=== PATIENT | female | born 1930 | race Caucasian/White ===

== ENCOUNTER 2017-03-09 20:33 | Emergency (ER) | payer MEDICARE, MEDICAID ==
[~2017-03-09] VITALS: Ht 149.9 cm; Wt 70.3 kg
[2017-03-09 21:14] LABS: BASO # 0.1 x10^3/uL (0.0-0.2); BASO % 1 % (0-3); EOS # 0.1 x10^3/uL (0.0-0.7); EOS % 2 % (0-3); HEMATOCRIT 37.3 % (36.0-47.0); HEMOGLOBIN 12.8 g/dL (12.0-15.5); LYMPH # 3.1 x10^3/uL (1.0-4.8); LYMPH % 40 % (24-48); MEAN CORPUSCULAR HEMOGLOBIN 31 pg (25-35); MEAN CORPUSCULAR HGB CONC 34 g/dL (31-37); MEAN CORPUSCULAR VOLUME 91 fL (79-100); MONO # 0.7 x10^3/uL (0.0-1.1); MONO % 9 % (0-9); NEUT # 3.7 x10^3uL (1.8-7.7); NEUT % 48 % (31-73); PLATELET COUNT 195 x10^3/uL (140-400); RED BLOOD COUNT 4.09 x10^6/uL (3.50-5.40); RED CELL DISTRIBUTION WIDTH 13.8 % (11.5-14.5); WHITE BLOOD COUNT 7.8 x10^3/uL (4.0-11.0)
--- NOTE | 2017-03-09 21:27 | PHYS DOC ---
General Chief Complaint: CHEST PAIN Stated Complaint: CHEST PAIN Time Seen by MD: 20:36 Source: patient Exam Limitations: no limitations Problems: History of Present Illness Initial Comments Pt is 86/F to ED c/o chest pain. Pt points to left lower lateral chest/L flank states she's had constant mild- mod left chest pain x 2 weeks. Moved here from [place] two wks ago, pt meds have been packed. No sob/n/v/diaphoresis/arm or neck sx. Sx worse positionally, no other complaints. Timing/Duration: constant (2 wks) Severity: moderate Modifying Factors: worse with movement, improves with rest Associated Symptoms: other Allergies: Coded Allergies: naproxen (Verified Allergy, Unknown, 03/09/17) Past Medical History Medical History: other (anxiety, GERD, HTN, CAD) Surgical History: angioplasty, appendectomy (rotator cuff, b/l hips) Social History Smoker: non-smoker Alcohol: none Drugs: none Review of Systems Constitutional: denies chills, denies fever Respiratory: denies cough, denies shortness of breath, denies wheezing Cardiovascular: see HPI, denies palpitations, denies syncope Gastrointestinal: denies abdominal pain, denies diarrhea, denies nausea, denies vomiting Genitourinary: denies dysuria, frequency, denies hematuria Musculoskeletal: see HPI, denies joint swelling, denies neck pain Psychiatric/Neurological: denies headache, denies numbness, denies paresthesia Physical Exam General Appearance: no apparent distress (poor hygiene) Eyes: bilateral eye normal inspection, bilateral eye PERRL, bilateral eye EOMI Ear, Nose, Throat: hearing grossly normal, normal ENT inspection, normal pharynx Neck: non-tender, supple Respiratory: normal breath sounds, no respiratory distress Cardiovascular: normal peripheral pulses, regular rate, rhythm Gastrointestinal: non tender, soft Back: no vertebral tenderness, CVA tenderness (L) Extremities: non-tender, normal inspection Neurologic/Psychiatric: shingle carrier II-XII nml as tested, no motor/sensory deficits, alert, normal mood/affect, oriented x 3 Skin: normal color, warm/dry Orders, Labs, Meds EKG: NSR 69 bpm, diffuse T flattening no STEMI Chest AP: no acute cardiopulmonary process, interpreted by me PATIENT: REO FOSTER ACCOUNT: [id number] : 1930 LOCATION: ER AGE: 86 SEX: F EXAM STATUS: PRE ER ORD. PHYSICIAN: ERICH GILLETTE DO REASON: L lateral CP, elev d-dimer PROCEDURE: CT ANGIOGRAPHY CHEST PROCEDURE CTA chest with contrast dated 03/09/2017. HISTORY Chest pain and shortness of breath. Elevated D-dimer. TECHNIQUE Contiguous axial imaging of the chest performed following the intravenous administration of 75 cc Omnipaque 300. Study performed as dedicated CTA with thin cut coronal MIPS 3D reconstructions. Exposure: One or more of the following individualized dose reduction techniques were utilized for this exam: 1. Automated exposure control. 2. Adjustment of the mA and/or kV according to patient size. 3. Use of iterative reconstruction technique. COMPARISON None. FINDINGS Contrast bolus is adequate. No evidence of central, lobar or segmental pulmonary embolus. Subsegmental branches not well evaluated based on technique. Heart size mildly enlarged. No pericardial effusion. Coronary artery calcifications. Borderline enlarged subcarinal and right hilar lymph nodes measure up to 10 millimeters short axis. No axillary adenopathy. Central airways are patent. There is diffuse bronchial wall thickening with mosaic attenuation throughout both lungs.. No consolidation or pleural effusion. No pneumothorax. There is linear scar or atelectasis at the right base. Limited images of the upper abdomen are unremarkable. Mild to moderate narrowing of the celiac artery origin with mild narrowing of the SMA origin. No acute bony abnormality. Multilevel spondylosis. IMPRESSION - No evidence of central, lobar or segmental pulmonary embolus. - Diffuse bronchial wall thickening with mosaic attenuation throughout both lungs. This could be related to bronchiolitis and/or other causes of small airways disease. Mild edema or inflammatory processes less likely. - Borderline enlarged mediastinal and right hilar lymph nodes, nonspecific. - Coronary artery calcifications. Electronically signed by: Jeremiah Awad (March 09, 2017 23:07:18) DICTATED AND SIGNED BY: JEREMIAH AWAD MD DATE: 03/09/17 [id number] CC: ERICH GILLETTE DO ~ d-dimer 0.99, K+ 3.2 (oral given), BNP 1497, UA +SE grossly +infection Departure Time of Disposition: 00:07 Disposition: 01 HOME, SELF-CARE Diagnosis: pyelonephritis left, hypokalemia Condition: STABLE Patient Instructions: Hypokalemia-Brief, Pyelonephritis, Adult, [id number] Additional Instructions: Rest, no strenuous activity. Aggressive hydration with gatorade, water. Eat one banana twice daily. Rx: cipro, kcl Take medications with food. Follow up with your PCP tomorrow for recheck of symptoms and potassium,and to reestablish your chronic medication regimen. Return to ED with new or changing symptoms. ERICH GILLETTE DO March 09, 2017 21:27
[2017-03-09 21:32] LABS: ALBUMIN 3.3 g/dL (3.4-5.0); ALBUMIN/GLOBULIN RATIO 0.9 (1.0-1.7); GFR 52.7; POTASSIUM 3.2 mmol/L (3.5-5.1); TOTAL BILIRUBIN 0.5 mg/dL (0.2-1.0); TOTAL PROTEIN 6.8 g/dL (6.4-8.2)
[2017-03-09 21:51] LABS: BILIRUBIN,URINE NEG (NEG); CLARITY,URINE CLOUDY; COLOR,URINE YELLOW; GLUCOSE,URINE NEG (NEG)
[2017-03-09 21:52] LABS: BACTERIA,URINE FEW /HPF (0-FEW); NITRITE,URINE NEG (NEG); SQUAMOUS EPITHELIAL CELL,UR MANY /LPF; UROBILINOGEN,URINE 2 mg/dL (0.2 mg/dL); WBC,URINE >40 /HPF (0-4)
[2017-03-09] MEDS ORDERED: IOHEXOL 300 MG/ML 75 ML VIAL. IV ONE (22:00)
[2017-03-09] MEDS ORDERED: POTASSIUM CHLORIDE 20 MEQ TABLET.ER. PO ONE (22:15)
[2017-03-09] MEDS ORDERED: IV NORMAL SALINE 50ML 50 ML ONE (22:46)
[2017-03-09] MEDS ORDERED: cefTRIAXone SODIUM 1 GM VIAL IV ONE (22:46)
--- NOTE | 2017-03-09 23:08 | RAD ---
PROCEDURE CTA chest with contrast dated 03/09/2017. HISTORY Chest pain and shortness of breath. Elevated D-dimer. TECHNIQUE Contiguous axial imaging of the chest performed following the intravenous administration of 75 cc Omnipaque 300. Study performed as dedicated CTA with thin cut coronal MIPS 3D reconstructions. Exposure: One or more of the following individualized dose reduction techniques were utilized for this exam: 1. Automated exposure control. 2. Adjustment of the mA and/or kV according to patient size. 3. Use of iterative reconstruction technique. COMPARISON None. FINDINGS Contrast bolus is adequate. No evidence of central, lobar or segmental pulmonary embolus. Subsegmental branches not well evaluated based on technique. Heart size mildly enlarged. No pericardial effusion. Coronary artery calcifications. Borderline enlarged subcarinal and right hilar lymph nodes measure up to 10 millimeters short axis. No axillary adenopathy. Central airways are patent. There is diffuse bronchial wall thickening with mosaic attenuation throughout both lungs.. No consolidation or pleural effusion. No pneumothorax. There is linear scar or atelectasis at the right base. Limited images of the upper abdomen are unremarkable. Mild to moderate narrowing of the celiac artery origin with mild narrowing of the SMA origin. No acute bony abnormality. Multilevel spondylosis. IMPRESSION - No evidence of central, lobar or segmental pulmonary embolus. - Diffuse bronchial wall thickening with mosaic attenuation throughout both lungs. This could be related to bronchiolitis and/or other causes of small airways disease. Mild edema or inflammatory processes less likely. - Borderline enlarged mediastinal and right hilar lymph nodes, nonspecific. - Coronary artery calcifications. Electronically signed by: Severiano Awad (March 09, 2017 23:07:18)
[2017-03-10] MEDS ORDERED: PHEN100T82 PO (00:12)
[2017-03-10] MEDS ORDERED: CIPR500T94 PO (00:12)
[2017-03-10] MEDS ORDERED: POTA10CA PO (00:12)
--- NOTE | 2017-03-10 00:28 | EKG ---
[address] [address] Test Date: 2017-03-09 Test Time: 20:54:31 Pat Name: ROE FOSTER Department: Room: Gender: F Thread Drawer: YONI : 1930 Requested By: ERICH GILLETTE Order Number: [id number] Reading MD: Ric Sánchez Measurements Intervals [place] Rate: 69 P: 0 ME: 148 QRS: 62 QRSD: 68 T: 41 QT: 388 QTc: 422 Interpretive Statements SINUS RHYTHM NON-SPECIFIC ST/T CHANGES Electronically Signed On 03-16-2017 13:22:28 CDT by Ric Sánchez
[2017-03-10 00:40] VITALS: BP 129/66
--- NOTE | 2017-03-10 08:13 | RAD ---
Portable chest, 03/09/2017: History: Mouth swelling, chest pain The heart is within normal limits in size. A coronary artery stent is projected over the superior aspect of the heart. There is calcific plaquing of the aorta. The pulmonary vascularity is normal. There is mild elevation of the right hemidiaphragm. No acute infiltrates are seen. There is no evidence of pleural fluid. Moderate degenerative changes are evident in the spine. IMPRESSION: 1. Aortic atherosclerosis. 2. Coronary artery disease. 3. Mild elevation of the right hemidiaphragm.
== END 2017-03-10 00:45 | disposition home or self-care (01) ==
LOC: ER 20:33
DX: N12 Tubulo-interstitial nephritis, not specified as acute or chronic (principal); E87.6 Hypokalemia; K21.9 Gastro-esophageal reflux disease without esophagitis; I10 Essential (primary) hypertension; I25.10 Atherosclerotic heart disease of native coronary artery without angina pectoris; Z98.61 Coronary angioplasty status; Z88.6 Allergy status to analgesic agent
CPT/HCPCS: 36415; 71010; 71275; 80053; 81001; 82550; 83690; 83735; 83880; 84484; 85027; 85379; 85610; 85730; 87086; 93005; 96365; 99285; J0696; Q9967

== ENCOUNTER 2017-07-10 12:37 | Emergency (ER) | payer MEDICAID, MEDICARE, OTHER ==
[~2017-07-10] VITALS: Ht 165.1 cm; Wt 108.9 kg
[~2017-07-10 12:37] MED LIST: CIPR500T94 PO; PHEN100T82 PO; POTA10CA PO
[2017-07-10 13:27] LABS: BASO # 0.1 x10^3/uL (0.0-0.2); BASO % 1 % (0-3); EOS # 0.1 x10^3/uL (0.0-0.7); EOS % 2 % (0-3); HEMATOCRIT 40.6 % (36.0-47.0); HEMOGLOBIN 13.9 g/dL (12.0-15.5); LYMPH # 2.6 x10^3/uL (1.0-4.8); LYMPH % 37 % (24-48); MEAN CORPUSCULAR HEMOGLOBIN 31 pg (25-35); MEAN CORPUSCULAR HGB CONC 34 g/dL (31-37); MEAN CORPUSCULAR VOLUME 91 fL (79-100); MONO # 0.6 x10^3/uL (0.0-1.1); MONO % 8 % (0-9); NEUT # 3.8 x10^3uL (1.8-7.7); NEUT % 53 % (31-73); PLATELET COUNT 223 x10^3/uL (140-400); RED BLOOD COUNT 4.45 x10^6/uL (3.50-5.40); RED CELL DISTRIBUTION WIDTH 13.6 % (11.5-14.5); WHITE BLOOD COUNT 7.1 x10^3/uL (4.0-11.0)
[2017-07-10 13:39] LABS: ALBUMIN 3.7 g/dL (3.4-5.0); CALCIUM 9.4 mg/dL (8.5-10.1); CREATININE 0.9 mg/dL (0.6-1.0); GFR 59.4; POTASSIUM 3.3 mmol/L (3.5-5.1); TOTAL BILIRUBIN 0.7 mg/dL (0.2-1.0); TOTAL PROTEIN 7.5 g/dL (6.4-8.2)
--- NOTE | 2017-07-10 13:50 | PHYS DOC ---
Past History Past Medical History: No Pertinent History Past Surgical History: Hip Replacement Alcohol Use: None Drug Use: None Adult General Chief Complaint Chief Complaint: GI PROBLEM HPI HPI Patient is a 87 year old F who presents with abdominal pain. Jane states that over the past week she has had intermittent dull abdominal pain mostly in the left lower quadrant. She states that her bowel movements have been infrequent. Her last bowel movement was 4 days ago. She describes it as small volume and appearing similar to coffee grounds. She feels this did improve her pain. She does have a history of occasional constipation. She does not take any medications currently. She moved from [place] this past January and has not established care. Her last colonoscopy was more than 10 years ago and she believes there was an abnormality. Review of Systems Review of Systems Constitutional: Denies fever or chills [] Eyes: Denies change in visual acuity, redness, or eye pain [] HENT: Denies nasal congestion or sore throat [] Respiratory: Denies cough or shortness of breath [] Cardiovascular: No additional information not addressed in HPI [] GI: Denies abdominal pain, nausea, vomiting, bloody stools or diarrhea [] : Denies dysuria or hematuria [] Musculoskeletal: Denies back pain or joint pain [] Integument: Denies rash or skin lesions [] Neurologic: Denies headache, focal weakness or sensory changes [] Endocrine: Denies polyuria or polydipsia [] Family History Family History Noncontributory Current Medications Current Medications Medications reviewed Allergies Allergies Allergies Coded Allergies Type Severity Reaction Last Updated Verified naproxen Allergy Unknown 03/09/17 Yes Physical Exam Physical Exam Constitutional: Well developed, well nourished, no acute distress, non-toxic appearance. [] HENT: Normocephalic, atraumatic, bilateral external ears normal, oropharynx moist, no oral exudates, nose normal. [] Eyes: PERRLA, EOMI, conjunctiva normal, no discharge. [] Neck: Normal range of motion, no tenderness, supple, no stridor. [] Cardiovascular:Heart rate regular rhythm, no murmur [] Lungs & Thorax: Bilateral breath sounds clear to auscultation [] Abdomen: Bowel sounds normal, soft, no masses, no pulsatile masses. [] Mild left lower quadrant tenderness to deep palpation Skin: Warm, dry, no erythema, no rash. [] Back: No tenderness, no CVA tenderness. [] Extremities: No tenderness, no cyanosis, no clubbing, ROM intact, no edema. [] Neurologic: Alert and oriented X 3, normal motor function, normal sensory function, no focal deficits noted. [] Psychologic: Affect normal, judgement normal, mood normal. [] Current Patient Data Vital Signs Vital Signs Date Time Temp Pulse Resp B/P (MAP) Pulse Ox O2 Delivery O2 Flow Rate FiO2 07/10/17 12:47 98.6 92 20 100 Room Air Lab Results Laboratory Tests Test 07/10/17 13:13 White Blood Count 7.1 x10^3/uL (4.0-11.0) Red Blood Count 4.45 x10^6/uL (3.50-5.40) Hemoglobin 13.9 g/dL (12.0-15.5) Hematocrit 40.6 % (36.0-47.0) Mean Corpuscular Volume 91 fL (79-100) Mean Corpuscular Hemoglobin 31 pg (25-35) Mean Corpuscular Hemoglobin Concent 34 g/dL (31-37) Red Cell Distribution Width 13.6 % (11.5-14.5) Platelet Count 223 x10^3/uL (140-400) Neutrophils (%) (Auto) 53 % (31-73) Lymphocytes (%) (Auto) 37 % (24-48) Monocytes (%) (Auto) 8 % (0-9) Eosinophils (%) (Auto) 2 % (0-3) Basophils (%) (Auto) 1 % (0-3) Neutrophils # (Auto) 3.8 x10^3uL (1.8-7.7) Lymphocytes # (Auto) 2.6 x10^3/uL (1.0-4.8) Monocytes # (Auto) 0.6 x10^3/uL (0.0-1.1) Eosinophils # (Auto) 0.1 x10^3/uL (0.0-0.7) Basophils # (Auto) 0.1 x10^3/uL (0.0-0.2) Sodium Level 141 mmol/L (136-145) Potassium Level 3.3 mmol/L (3.5-5.1) L Chloride Level 105 mmol/L (98-107) Carbon Dioxide Level 28 mmol/L (21-32) Anion Gap 8 (6-14) Blood Urea Nitrogen 10 mg/dL (7-20) Creatinine 0.9 mg/dL (0.6-1.0) Estimated GFR (Cockcroft-Gault) 59.4 BUN/Creatinine Ratio 11 (6-20) Glucose Level 94 mg/dL (70-99) Calcium Level 9.4 mg/dL (8.5-10.1) Total Bilirubin 0.7 mg/dL (0.2-1.0) Aspartate Amino Transferase (AST) 11 U/L (15-37) L Alanine Aminotransferase (ALT) 15 U/L (14-59) Alkaline Phosphatase 84 U/L (46-116) Total Protein 7.5 g/dL (6.4-8.2) Albumin 3.7 g/dL (3.4-5.0) Albumin/Globulin Ratio 1.0 (1.0-1.7) Radiology/Procedures Radiology/Procedures Imaging was declined Course & Med Decision Making Course & Med Decision Making Pertinent Labs and Imaging studies reviewed. (See chart for details) Jane did not have any complaints of pain during her stay in the emergency room. She states that her symptoms resolved just prior to arrival. She was discharged in stable condition. Dragon Disclaimer Dragon Disclaimer This chart was dictated in whole or in part using Voice Recognition software in a busy, high-work load, and often noisy Emergency Department environment. It may contain unintended and wholly unrecognized errors or omissions. Departure Departure: Impression: Primary Impression: Constipation Additional Impression: Lower GI bleed Disposition: 01 HOME, SELF-CARE Condition: STABLE Referrals: PCP,NO (PCP) Patient Instructions: Constipation, Adult, Gastrointestinal Bleeding Additional Instructions: Jane was seen in the emergency department for pain in her abdomen. No emergency medical condition was found on history or physical exam. She did have normal labs including normal blood counts. Her symptoms are most consistent with constipation associated with mild lower bleeding. She is advised to use MiraLAX for constipation and follow-up with her primary care doctor as soon as possible for further management including consideration of colonoscopy Problem Qualifiers Primary Impression: Constipation Constipation type: outlet dysfunction constipation Qualified Codes: K59.02 - Outlet dysfunction constipation LOUISE GUERRERO MD Jul 10, 2017 13:50
[2017-07-10 14:36] VITALS: BP 150/96
== END 2017-07-10 14:38 | disposition home or self-care (01) ==
LOC: ER 12:37
DX: K92.2 Gastrointestinal hemorrhage, unspecified (principal); K59.02 Outlet dysfunction constipation; Z88.6 Allergy status to analgesic agent
CPT/HCPCS: 36415; 80053; 85025; 99284

== ENCOUNTER 2017-12-19 20:25 | Emergency (ER) | payer MEDICARE ==
[~2017-12-19] VITALS: Ht 165.1 cm; Wt 108.9 kg
--- NOTE | 2017-12-19 20:33 | ED.ADGEN ---
Past History Past Medical History: No Pertinent History Past Surgical History: Hip Replacement Alcohol Use: None Drug Use: None Adult General Chief Complaint Chief Complaint ".. I fell..".. " I was out walking with my daughter.. and I tripped on a side walk seam... and fell on this Lt. side....I did hit my head hard.. and zeke twisted my neck... but I am really... still real sore in this Lt. flank..." HPI HPI Patient is a 87 year old female who presents with above hx and complaints of fall on her left side prior to arrival. Pt. complaints of severe Lt abd., chest , head and neck pain. Pt. localizes pain in Lt spleen and chest wall area on palpation. Pt. denies loss of consciousness. Patient denies any limb tenderness or other injuries at this time. Review of Systems Review of Systems Constitutional: Denies fever or chills [] Eyes: Denies change in visual acuity, redness, or eye pain [] HENT: Denies nasal congestion or sore throat []complaints of Neck pain Respiratory: Denies cough or shortness of breath [] Cardiovascular: No additional information not addressed in HPI []complaints of chest pain GI: Complaints of abdominal pain Lt.upper quadrant. Denies nausea, vomiting, bloody stools or diarrhea [] : Denies dysuria or hematuria [] Musculoskeletal: Denies back pain or joint pain [] Integument: Denies rash or skin lesions [] Neurologic: Complaints of headache, . Denies focal weakness or sensory changes [] Endocrine: Denies polyuria or polydipsia [] All other systems were reviewed and found to be within normal limits, except as documented in this note. Family History Family History Non-Contributory Current Medications Current Medications Current Medications Medications (Trade) Dose Ordered Sig/Jovon Start Time Stop Time Status Last Admin Dose Admin Ceftriaxone Sodium 1 gm/ Sodium Chloride 50 ml @ 100 mls/hr 1X ONCE 12/19/17 23:00 12/19/17 23:29 UNV Ceftriaxone Sodium (Rocephin) 1 gm ONCE ONCE 12/19/17 23:00 12/19/17 23:01 DC 12/19/17 23:12 1 GM Iohexol (Omnipaque 300 Mg/ml) 75 ml 1X ONCE 12/19/17 22:30 12/19/17 22:31 DC 12/19/17 22:12 75 ML Lactated Ringer's 1,000 ml @ 1,000 mls/hr Q1H 12/19/17 20:37 12/19/17 21:36 DC 12/19/17 21:05 1,000 MLS/HR Magnesium Hydroxide (Milk Of Magnesia) 2,400 mg 1X ONCE 12/19/17 22:00 12/19/17 22:06 DC 12/19/17 23:12 2,400 MG Morphine Sulfate (Morphine 10mg Syringe) 5 mg 1X ONCE 12/19/17 21:00 12/19/17 21:01 DC 12/19/17 21:05 5 MG Potassium Chloride (KCl Oral Soln) 40 meq 1X ONCE 12/19/17 22:15 12/19/17 22:16 DC 12/19/17 23:12 40 MEQ See nursing for home meds Allergies Allergies Allergies Coded Allergies Type Severity Reaction Last Updated Verified naproxen Allergy Unknown 12/19/17 Yes Physical Exam Physical Exam Constitutional: in acute distress, non-toxic appearance. [] HENT: Normocephalic, atraumatic, bilateral external ears normal, oropharynx moist, no oral exudates, nose normal. Edentulous Eyes: PERRLA, EOMI, conjunctiva normal, no discharge. [] Neck: decreased range of motion due to pain, no stridor. [] Cardiovascular:Heart rate regular rhythm, no murmur []PMI to Lt. Lungs & Thorax: Bilateral breath sounds equal at apex with scattered wheezes on auscultation [] Lower chest wall and flank tenderness. Abdomen: Bowel sounds normal, soft,Lt. spleen area has marked tenderness and Lt flank pain, , no masses, no pulsatile masses. [] Old scar. Obese. Skin: Warm, dry, no erythema, no rash. [] Back: No tenderness, no CVA tenderness. [] Extremities: No tenderness, no cyanosis, no clubbing, ROM intact, ankle edema. [ ] Neurologic: Alert and oriented X 3, no marked motor function deficits but guarded movements because of left flank pain, no gross sensory function deficits , no focal deficits noted. DTRs +2 at patella and brachial. Psychologic: Affect anxious, judgement normal, mood normal. [] Current Patient Data Vital Signs Vital Signs Date Time Temp Pulse Resp B/P (MAP) Pulse Ox O2 Delivery O2 Flow Rate FiO2 12/19/17 20:25 98.2 84 18 97 Room Air Lab Results Laboratory Tests Test 12/19/17 20:41 12/19/17 21:00 White Blood Count 8.6 x10^3/uL (4.0-11.0) Red Blood Count 4.22 x10^6/uL (3.50-5.40) Hemoglobin 12.9 g/dL (12.0-15.5) Hematocrit 37.3 % (36.0-47.0) Mean Corpuscular Volume 89 fL (79-100) Mean Corpuscular Hemoglobin 31 pg (25-35) Mean Corpuscular Hemoglobin Concent 35 g/dL (31-37) Red Cell Distribution Width 13.9 % (11.5-14.5) Platelet Count 227 x10^3/uL (140-400) Neutrophils (%) (Auto) 61 % (31-73) Lymphocytes (%) (Auto) 32 % (24-48) Monocytes (%) (Auto) 7 % (0-9) Eosinophils (%) (Auto) 1 % (0-3) Basophils (%) (Auto) 1 % (0-3) Neutrophils # (Auto) 5.2 x10^3uL (1.8-7.7) Lymphocytes # (Auto) 2.7 x10^3/uL (1.0-4.8) Monocytes # (Auto) 0.6 x10^3/uL (0.0-1.1) Eosinophils # (Auto) 0.1 x10^3/uL (0.0-0.7) Basophils # (Auto) 0.1 x10^3/uL (0.0-0.2) Prothrombin Time 11.4 SEC (9.4-11.4) Prothrombin Time INR 1.1 (0.9-1.1) PTT 23 SEC (23-33) Sodium Level 140 mmol/L (136-145) Potassium Level 3.1 mmol/L (3.5-5.1) L Chloride Level 103 mmol/L (98-107) Carbon Dioxide Level 28 mmol/L (21-32) Anion Gap 9 (6-14) Blood Urea Nitrogen 13 mg/dL (7-20) Creatinine 1.0 mg/dL (0.6-1.0) Estimated GFR (Cockcroft-Gault) 52.6 Glucose Level 131 mg/dL (70-99) H Calcium Level 8.9 mg/dL (8.5-10.1) Magnesium Level 1.8 mg/dL (1.8-2.4) Total Bilirubin 0.5 mg/dL (0.2-1.0) Direct Bilirubin 0.1 mg/dL (0.0-0.2) Aspartate Amino Transferase (AST) 15 U/L (15-37) Alanine Aminotransferase (ALT) 15 U/L (14-59) Alkaline Phosphatase 85 U/L (46-116) Creatine Kinase 84 U/L (26-192) Creatine Kinase MB (Mass) 1.3 ng/mL (0.0-3.6) Creatine Kinase MB Relative Index 1.5 % (0-4) Troponin I Quantitative < 0.017 ng/mL (0-0.055) CD-Suu-K-Type Natriuretic Peptide 725 pg/mL (0-449) H Total Protein 6.7 g/dL (6.4-8.2) Albumin 3.2 g/dL (3.4-5.0) L Lipase 134 U/L (73-393) Urine Collection Type Unknown Urine Color Yellow Urine Clarity Hazy Urine pH 6.5 Urine Specific [place] 1.010 Urine Protein Neg (NEG-TRACE) Urine Glucose (UA) Neg mg/dL (NEG) Urine Ketones (Stick) Neg mg/dL (NEG) Urine Blood Mod (NEG) Urine Nitrite Neg (NEG) Urine Bilirubin Neg (NEG) Urine Urobilinogen Dipstick 0.2 mg/dL (0.2 mg/dL) Urine Leukocyte Esterase Mod (NEG) Urine RBC 3-5 /HPF (0-2) Urine WBC 11-20 /HPF (0-4) Urine Squamous Epithelial Cells Occ /LPF Urine Bacteria Few /HPF (0-FEW) Urine Hyaline Casts Occ /HPF Urine Mucus Slight /LPF EKG EKG My interpretation of EKG shows a sinus rhythm at 83 bpm. There are occasional premature atrial contractions. An leftward axis. But no findings acute STEMI with contralateral changes.[] Radiology/Procedures Radiology/Procedures Rotation of chest x-ray shows some hilar follows. And deviated trachea some blunting of left closed phrenic angle. COPD PD changes. Some increased cephalization. Borderline cardiomegaly. No free air in the diaphragm. Arthritic changes. CT of chest and abdomen show no acute surgical processes.[] Course & Med Decision Making Course & Med Decision Making Pertinent Labs and Imaging studies reviewed. (See chart for details). Acyclovir, Tylenol and ibuprofen as needed for discomfort. Patient use ice packs. Patient follow-up primary care. Patient return of any concerns. [] Final Impression Final Impression 1. Fall 2. Contusion[]s 3. Cervical strain sprain 4. Concussion Problems: Dragon Disclaimer Dragon Disclaimer This electronic medical record was generated, in whole or in part, using a voice recognition dictation system. HAMZAH ALCALA MD Dec 19, 2017 20:33
[2017-12-19 20:59] LABS: BASO # 0.1 x10^3/uL (0.0-0.2); BASO % 1 % (0-3); EOS # 0.1 x10^3/uL (0.0-0.7); EOS % 1 % (0-3); HEMATOCRIT 37.3 % (36.0-47.0); HEMOGLOBIN 12.9 g/dL (12.0-15.5); LYMPH # 2.7 x10^3/uL (1.0-4.8); LYMPH % 32 % (24-48); MEAN CORPUSCULAR HEMOGLOBIN 31 pg (25-35); MEAN CORPUSCULAR HGB CONC 35 g/dL (31-37); MEAN CORPUSCULAR VOLUME 89 fL (79-100); MONO # 0.6 x10^3/uL (0.0-1.1); MONO % 7 % (0-9); NEUT # 5.2 x10^3uL (1.8-7.7); NEUT % 61 % (31-73); PLATELET COUNT 227 x10^3/uL (140-400); RED BLOOD COUNT 4.22 x10^6/uL (3.50-5.40); RED CELL DISTRIBUTION WIDTH 13.9 % (11.5-14.5); WHITE BLOOD COUNT 8.6 x10^3/uL (4.0-11.0)
[2017-12-19] MEDS: MORPHINE SULFATE 10 MG/ML SYRINGE. SQ ONE (21:05)
[2017-12-19] MEDS: IV RINGERS SOLUTION,LACTATED 1,000 ML IV SCH (21:05)
[2017-12-19 21:24] LABS: ALBUMIN 3.2 g/dL (3.4-5.0); CALCIUM 8.9 mg/dL (8.5-10.1); DIRECT BILIRUBIN 0.1 mg/dL (0.0-0.2); GFR 52.6; MAGNESIUM 1.8 mg/dL (1.8-2.4); POTASSIUM 3.1 mmol/L (3.5-5.1); TOTAL BILIRUBIN 0.5 mg/dL (0.2-1.0); TOTAL PROTEIN 6.7 g/dL (6.4-8.2)
[2017-12-19] MEDS: IOHEXOL 300 MG/ML 75 ML VIAL. IV ONE ×2 (21:30→22:12)
[2017-12-19 21:54] LABS: BILIRUBIN,URINE NEG (NEG); CLARITY,URINE HAZY; COLOR,URINE YELLOW; GLUCOSE,URINE NEG (NEG)
[2017-12-19 21:55] LABS: BACTERIA,URINE FEW /HPF (0-FEW); HYALINE CASTS, URINE OCC /HPF; NITRITE,URINE NEG (NEG); SQUAMOUS EPITHELIAL CELL,UR OCC /LPF; UROBILINOGEN,URINE 0.2 mg/dL (0.2 mg/dL)
--- NOTE | 2017-12-19 22:29 | RAD ---
Indication: Fall, dizziness TECHNIQUE: CT head without IV contrast COMPARISON: None FINDINGS: No pathologic extra-axial or intra-axial fluid collection. Moderate diffuse cerebral atrophy noted. No acute intracranial bleed. No focal loss of gonzalez-white differentiation. Confluent low-attenuation is seen in the periventricular and deep white matter. Visualized orbits are within normal limits. No calvarial fractures. Visualized paranasal sinuses and mastoid air cells are clear. Atherosclerotic disease of the bilateral cavernous carotid arteries noted. IMPRESSION: 1. No acute intracranial process on this noncontrast CT. 2. Advanced white matter changes likely secondary to chronic microvascular ischemic disease. CT cervical spine INDICATION: Fall TECHNIQUE: CT cervical spine without IV contrast with multiplanar reformats. COMPARISON: None FINDINGS: There is loss of normal cervical lordosis. This could be due to muscle spasm or positioning. No compression deformities. Atlantoaxial joint interval is preserved. No acute fractures. Degenerative changes are seen in the atlantoaxial joint. Facet joints are in normal anatomic alignment. There is mild anterolisthesis of C4 over C5. Significant intervertebral disc space narrowing noted at C5-C6 and C6-C7 with endplate sclerosis and osteophytosis. Multilevel mild to moderate facet arthropathy noted. Prevertebral soft tissue within normal limits. The noncontrast appearance of the nasopharynx, oropharynx and hypopharynx are within normal limits. No bulky cervical adenopathy. C2-C3: Mild left neuroforamina narrowing. Severe left facet arthropathy. C3-C4: Mild circumferential disc bulge. Severe bilateral facet arthropathy. Severe bilateral neuroforamina narrowing. C4-C5: Severe bilateral facet arthropathy. Severe bilateral neuroforamina narrowing. C5-6: Moderate bilateral facet arthropathy. Severe left and moderate right neuroforamina narrowing. Mild spinal canal stenosis measuring 8 mm in AP dimension. C6-C7: Moderate bilateral facet arthropathy. Severe bilateral neuroforamina narrowing. Mild spinal canal stenosis measuring 8 mm in AP dimension. IMPRESSION: 1. No acute fractures. 2. Multilevel degenerative disc disease with facet arthropathy causing varying amount of neuroforaminal narrowing and spinal canal stenosis as described above. Electronically signed by: Daquan Blanco DO (12/19/2017 10:27 PM) [facility]
--- NOTE | 2017-12-19 22:35 | RAD ---
PQRS Compliance Statement: One or more of the following individualized dose reduction techniques were utilized for this examination: 1. Automated exposure control 2. Adjustment of the mA and/or kV according to patient size 3. Use of iterative reconstruction technique CT angiography chest, abdomen and pelvis 12/19/2017 INDICATION: Fall, chest and abdominal pain with dizziness and shortness of breath. Bradycardia. COMPARISON: CT angiography chest March 09, 2017 TECHNIQUE: Multiple axial CT images of the chest, abdomen and pelvis were obtained after the intravenous administration of 100 cc Omnipaque 300. Coronal and sagittal reformats are provided. Maximum intensity projection images of the thoracic and abdominal vasculature are provided. FINDINGS: The thyroid gland is normal in appearance. There are no pathologically enlarged lymph nodes in the axilla. A right paratracheal lymph node measures 8 mm by short axis. A right precarinal lymph node measures 10 mm by short axis. A prevascular lymph node measures 7 mm by short axis. A subcarinal lymph node measures 13 mm by short axis. A right hilar lymph node measures 8 mm by short axis. A left hilar lymph node measures 8 mm by short axis. The thoracic aorta is normal in caliber measuring 3.5 cm at the level of the main pulmonary artery. There is adequate opacification of the pulmonary arterial system. No filling defects are identified to suggest acute or chronic pulmonary emboli. Heart size is within normal limits. Three-vessel coronary artery vascular calcifications are present. There is no pericardial effusion. There is diffuse groundglass changes throughout the lungs with minimal intralobular septal thickening which may represent mild pulmonary interstitial edema. There is a 3 mm solid noncalcified pulmonary nodule in the right lower lobe (series 4, image 45). There are no pleural effusions. No pulmonary vascular congestion or pneumothorax. There is a small hiatal hernia. Esophagus appears patulous. There are no acutely displaced rib fractures. Abdomen/pelvis: The liver, spleen, bilateral adrenal glands, pancreas and gallbladder are normal in appearance. The abdominal aorta measures 2.0 cm at the aortic hiatus. There is an infrarenal abdominal aortic aneurysm measuring 2.3 x 2.3 cm. There is moderate calcified and noncalcified atheromatous plaque. The common iliac vessels, external and internal iliac vessels are normal in course and caliber with mild atherosclerotic changes. Bilateral hip prosthesis noted, limiting evaluation of the pelvis. There are no pathologically enlarged lymph nodes in the abdomen or pelvis. There is no free fluid or free intraperitoneal air. The kidneys enhance symmetrically. Few renal cystic lesions are identified in the right kidney measuring up to 15 mm. The inferior pole right renal lesion measuring 9 mm is indeterminate and follow-up renal ultrasound may be of benefit for further characterization. Small large bowel are normal in caliber without evidence for bowel obstruction or inflammation. Mild colonic diverticulosis is present without adjacent inflammatory changes appendix is not definitively visualized. No adjacent plantar changes are identified in the right lower quadrant. There is asymmetric atrophy of the right sella as muscle. No compression deformity of the spine. IMPRESSION: 1. No evidence for acute pulmonary embolism. 2. There is suggestion of mild pulmonary interstitial edema. 3. Nonenlarged mediastinal and hilar lymph nodes are likely reactive. 4. Small hiatal hernia. 5. No acutely displaced rib fractures are identified. Spleen is normal in appearance. 6. No evidence for bowel obstruction or inflammation. 7. There is an inferior pole right renal lesion measuring 9 mm which is indeterminate. Follow-up renal ultrasound may be of benefit for further characterization. 8. Infrarenal abdominal aortic aneurysm measuring 2.3 x 2.3 cm. There is moderate atherosclerotic changes of the abdominal aorta. 9. Please see above for incidental findings. Electronically signed by: Cathy Harris MD (12/19/2017 10:32 PM) [id number]
[2017-12-19] MEDS ORDERED: CEPH-264 PO (22:59)
[2017-12-19] MEDS: cefTRIAXone IV Push 1 GM VIAL. IVP ONE (23:12)
[2017-12-19] MEDS: MAGNESIUM HYDROXIDE 2,400 MG/30 ML ORAL.SUSP. PO ONE (23:12)
[2017-12-19] MEDS: POTASSIUM CHLORIDE 20 MEQ/15 ML ORAL LIQUID. PO ONE (23:12)
[2017-12-19 23:13] VITALS: BP 173/98
--- NOTE | 2017-12-20 01:28 | EKG ---
[address] [address] Test Date: 2017-12-19 Test Time: 20:48:19 Pat Name: CANDICE FOSTER Department: Room: Gender: F [employer] Helper: : [id number] Requested By: HAMZAH ALCALA Order Number: [id number] Reading MD: Measurements Intervals [place] Rate: 83 P: 90 ME: 160 QRS: -2 QRSD: 68 T: 16 QT: 320 QTc: 381 Interpretive Statements SINUS RHYTHM ATRIAL PREMATURE COMPLEX(ES) LEFTWARD AXIS OTHERWISE NORMAL ECG RI6.01 No previous ECG available for comparison
--- NOTE | 2017-12-20 08:14 | RAD ---
AP chest, 12/19/2017: History: Fall, chest pain Comparison is made to a study from 03/09/2017. The heart is at the upper limits of normal in size. There is calcific plaquing of the thoracic aorta. No pulmonary infiltrate is seen. Blunting of the right lateral costophrenic angle suggests a tiny amount of pleural fluid. There is no evidence of pneumothorax. IMPRESSION: 1. Borderline cardiomegaly and aortic atherosclerosis. 2. Probable tiny right pleural effusion.
== END 2017-12-19 23:23 | disposition home or self-care (01) ==
LOC: ER 20:25
DX: S06.0X0A Concussion without loss of consciousness, initial encounter (principal); S16.1XXA Strain of muscle, fascia and tendon at neck level, initial encounter; S30.1XXA Contusion of abdominal wall, initial encounter; S20.212A Contusion of left front wall of thorax, initial encounter; Z88.6 Allergy status to analgesic agent; W18.09XA Striking against other object with subsequent fall, initial encounter; Y93.01 Activity, walking, marching and hiking; Y99.8 Other external cause status; Y92.480 Sidewalk as the place of occurrence of the external cause
CPT/HCPCS: 36415; 70450; 71045; 71275; 72125; 74174; 80048; 80076; 81001; 82553; 83690; 83735; 83880; 84484; 85025; 85610; 85730; 87086; 93005; 96361; 96372; 96374; 99285; J0696; J2270; J7120; Q9967

== ENCOUNTER → 2018-04-20 | Outpatient (CLI) | payer MEDICARE ==
[~2018-04-20] MED LIST changes: +CEPH-264 PO
[2018-04-20 14:05] LABS: CALCIUM 9.3 mg/dL (8.5-10.1); CREATININE 1.1 mg/dL (0.6-1.0); GFR 47.1; POTASSIUM 3.9 mmol/L (3.5-5.1)
== END | disposition home or self-care (01) ==
LOC: LAB 13:07
PROVIDERS: ATTEND Family Medicine
DX: R07.1 Chest pain on breathing (principal); I10 Essential (primary) hypertension; E87.6 Hypokalemia; K21.9 Gastro-esophageal reflux disease without esophagitis
CPT/HCPCS: 36415; 80048

== ENCOUNTER → 2018-04-20 | Outpatient (CLI) | payer MEDICARE ==
[~2018-04-20] MED LIST changes: +IOHEXOL 300 MG/ML 75 ML VIAL. IV ONE
--- NOTE | 2018-04-20 17:13 | RAD ---
CTA chest with contrast Indication: Shortness of breath. Chest pain. . Comparison: December 19, 2017 Technique: After intravenous contrast administration, CT imaging was performed of the chest. MIP reconstructions were obtained. Exposure: One or more of the following individualized dose reduction techniques were utilized for this examination: 1. Automated exposure control 2. Adjustment of the mA and/or kV according to patient size 3. Use of iterative reconstruction technique. FINDINGS: Pulmonary arteries:No evidence of pulmonary embolism. Thoracic aorta: Ectasia of the ascending aorta measuring 3.9 cm transverse measure slightly larger than the difference may just be due to the variation in bolus timing. No descending aortic aneurysm. Due to bolus timing, the aorta is not adequately opacified with contrast to exclude dissection. Atheromatous calcifications. Thyroid gland:Visualized aspect is unremarkable. Lymph nodes: Mildly enlarged mediastinal and hilar lymph nodes are unchanged. Heart: Coronary artery calcifications. Mildly enlarged. Esophagus: Unremarkable Pleural spaces: No significant effusion Lungs: Mosaic attenuation of both lungs, appears more pronounced on the current exam. Trachea and central airways: Patent Bones: Degenerative spondylosis. Degenerative changes of both shoulders. Upper abdomen: Slices through the upper abdomen are limited due to the technique . Dense calcifications at the origin of the celiac trunk and superior mesenteric artery as well as visualized renal arteries. IMPRESSION: 1. Negative for pulmonary embolism. 2. Mosaic attenuation of both lungs is more pronounced on today's exam, nonspecific but correlate for small airway disease or inflammatory process. No dense airspace consolidation. 3. Mildly ectatic ascending aorta measures 3.9 cm transverse. This measures slightly larger but that may just be due to difference in technique rather than a significant change. 4. Mild mediastinal and hilar lymph node enlargement is unchanged. Electronically signed by: Severiano Light MD (04/20/2018 5:10 PM) [id number]
== END | disposition home or self-care (01) ==
LOC: RAD 16:21
PROVIDERS: ATTEND Family Medicine
DX: I77.810 Thoracic aortic ectasia (principal); M47.894 Other spondylosis, thoracic region; I51.7 Cardiomegaly; I10 Essential (primary) hypertension; E87.6 Hypokalemia; K21.9 Gastro-esophageal reflux disease without esophagitis; R59.0 Localized enlarged lymph nodes
CPT/HCPCS: 71275; Q9967

== ENCOUNTER → 2018-06-01 | Outpatient (CLI) | payer MEDICARE ==
[~2018-06-01] MED LIST changes: -IOHEXOL 300 MG/ML 75 ML VIAL. IV ONE
--- NOTE | 2018-06-01 14:49 | RAD ---
DATE: 06/01/2018 EXAM: MAMMO DARCI DIAG BILAT HISTORY: Left breast pain COMPARISON: None available This study was interpreted with the benefit of Computerized Aided Detection (CAD). The breast parenchyma is primarily fatty replaced. Breast parenchyma level density A. FINDINGS: 2-D and 3-D tomosynthesis imaging was performed in CC and MLO projections. No spiculated mass or architectural distortion is seen. There are scattered benign type calcifications. No suspicious microcalcifications are evident. IMPRESSION: There is no mammographic evidence of malignancy in either breast. BI-RADS CATEGORY: 2 BENIGN FINDING(S) RECOMMENDED FOLLOW-UP: 12M 12 MONTH FOLLOW-UP PQRS compliance statement: Patient information was entered into a reminder system with a target due date for the next mammogram. Mammography is a sensitive method for finding small breast cancers, but it does not detect them all and is not a substitute for careful clinical examination. A negative mammogram does not negate a clinically suspicious finding and should not result in delay in biopsying a clinically suspicious abnormality. "Our facility is accredited by the [employer] Mammography Program."
== END | disposition home or self-care (01) ==
LOC: MAMMO 13:55
PROVIDERS: ATTEND Family Medicine
DX: N64.4 Mastodynia (principal); I10 Essential (primary) hypertension; I25.10 Atherosclerotic heart disease of native coronary artery without angina pectoris; K21.9 Gastro-esophageal reflux disease without esophagitis; E87.6 Hypokalemia; Z88.8 Allergy status to other drugs, medicaments and biological substances; Z88.6 Allergy status to analgesic agent
CPT/HCPCS: 77066; G0279; 77062

== ENCOUNTER → 2018-06-01 | Outpatient (CLI) | payer OTHER ==
--- NOTE | 2018-06-02 08:03 | RAD ---
Pelvis with left hip, 3 views, 06/01/2018: HISTORY: Pain, previous hip replacement The bony structures are demineralized. 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 No recent fracture or dislocation is identified. There are several coarse dystrophic calcifications and/or old nonunited fracture fragments along the lateral aspect of the prosthetic left hip. There is no evidence of loosening or infection of the prosthesis. Degenerative changes are noted in the lower lumbar spine. Aortic calcific plaquing is present. IMPRESSION: 1. Demineralization. 2. Old nonunited fracture fragments and dystrophic periarticular calcifications related to the left hip prosthesis. 3. No acute abnormality is detected. Electronically signed by: Saravanan Torres MD (06/02/2018 7:59 AM) [facility]
== END | disposition home or self-care (01) ==
LOC: RAD 20:48
PROVIDERS: ATTEND Family Medicine
DX: M81.8 Other osteoporosis without current pathological fracture (principal); I25.10 Atherosclerotic heart disease of native coronary artery without angina pectoris; E87.6 Hypokalemia; I10 Essential (primary) hypertension; Z96.649 Presence of unspecified artificial hip joint
CPT/HCPCS: 73502

== ENCOUNTER → 2018-08-07 | Outpatient (CLI) | payer MEDICARE ==
--- NOTE | 2018-08-07 13:20 | RAD ---
EXAM: Renal sonogram. HISTORY: Renal cyst. TECHNIQUE: Sonographic imaging the kidneys and bladder was performed. COMPARISON: CT dated 07/26/2018. FINDINGS: The right kidney measures 8.7 cm [id number]. The left kidney measures 8.7 cm [id number]. There are 2 right renal cyst measuring 1.9 cm and 1.7 cm. 0.9 cm. No solid renal lesion is seen. There is no hydronephrosis. The bladder is unremarkable. IMPRESSION: 1. Bilateral renal cysts. 2. Slight decreased renal size likely due to mild atrophy. Electronically signed by: Sammi Hughes MD (08/07/2018 1:17 PM) [id number]
== END | disposition home or self-care (01) ==
LOC: US 09:36
PROVIDERS: ATTEND Family Medicine
DX: N28.1 Cyst of kidney, acquired (principal)
CPT/HCPCS: 76770